=== PATIENT | female | born 1945 | race Caucasian/White ===

== ENCOUNTER 2024-11-19 19:33 | Inpatient (IN) | payer OTHER ==
[2024-11-19 22:08] LABS: ALT (SGPT) 10 U/L (Less than 34); AST (SGOT) 21 U/L (11-34); Albumin 3.5 g/dL (3.1-4.5); Alkaline Phosphatase 59 U/L (40-110); Anion Gap 11 mmol/L (10-20); BUN (Urea Nitrogen) 16 mg/dL (9.8-20.1); Bilirubin, Total 0.5 mg/dL (0.3-1.2); Calc. Creatinine Clearance 0 mL/min (70-130); Calcium 8.5 mg/dL (7.8-10.44); Carbon Dioxide 25 mmol/L (23-31); Chloride 98 mmol/L (98-107); Globulin 4.1 g/dL (2.4-3.5); Glucose 142 mg/dL (83-110); Potassium 3.3 mmol/L (3.5-5.1); Sodium 131 mmol/L (136-145)
[2024-11-19 22:40] LABS: Glucose, Urine (Dipstick) Normal (Negative); Leukocyte 500 (Negative); Protein, Urine (Dipstick) 15 mg/dl (Neg-Trace); Specific Gravity, Urine 1.005 (1.005-1.030)
[2024-11-19 22:44] LABS: #Basophils Less than 0.03 10x3/uL (0.0-0.2); #Eosinophils 0.04 10x3/uL (0.0-0.5); #Monocytes 0.95 10x3/uL (0.0-1.1); #Neutrophils 6.40 10x3/uL (1.5-8.4); %Basophils 0.2 % (0.0-2.0); %Eosinophils 0.4 % (0.0-6.0); %Lymphocytes 16.8 % (18.0-47.0); %Monocytes 10.6 % (0.0-10.0); %Neutrophils 71.8 % (40.0-75.0); Hematocrit 36.2 % (34.9-44.5); Hemoglobin 12.3 g/dL (12.0-15.5); Mean Corpuscular Hemoglobin 29.2 pg (27.0-33.0); Mean Corpuscular Volume 86.0 fL (81.6-98.3); Platelet Count 280 10x3/uL (150-450); Red Blood Cell (RBC) Count 4.21 10x6/uL (3.90-5.03); White Blood Cell (WBC) Count 8.93 10x3/uL (3.5-10.5)
[2024-11-19 22:52] LABS: Bacteria/HPF Rare-Few HPF (None Seen); CAUTI Indications for Culture Dysuria,urgency,freq; RBC/HPF 0-3 HPF (0-3); WBC/HPF 0-3 HPF (0-3)
[2024-11-19 22:53] LABS: Urine Culture Reflex No No
[2024-11-19] MEDS ORDERED: Ketorolac Tromethamine 30 MG (1 mL) VIAL ONE (23:21)
[2024-11-20 00:35] VITALS: BMI 27.9
[2024-11-20 12:22] VITALS: BMI 27.9
[2024-11-20] MEDS ORDERED: Bupivacaine HCl 0.5%/Epinephrine 1:200,000/PF 30 ml Vial ONE (12:39)
[2024-11-20] MEDS ORDERED: Ondansetron PF 4 MG/2 ML Vial ONE (12:40)
[2024-11-20] MEDS ORDERED: SUGAMMADEX SODIUM 200 MG/2 ML VIAL ONE (12:40)
[2024-11-20] MEDS ORDERED: Rocuronium Bromide 10 MG/ML (10ML VIAL) ONE (12:40)
[2024-11-20] MEDS ORDERED: PROPOFOL 40 ML ONE (12:40)
[2024-11-20] MEDS ORDERED: Lidocaine 1% PF 5 ML VIAL ONE (12:40)
[2024-11-20] MEDS ORDERED: Glycopyrrolate 0.2 MG/ML 5 ML SYRINGE ONE (13:12)
[2024-11-20] MEDS ORDERED: Calcium Carbonate 500 MG ChewTAB PO PRN (14:11)
[2024-11-20] MEDS ORDERED: hydrALAZINE 20 MG/ML VIAL SLOW IVP PRN (14:11)
[2024-11-20] MEDS ORDERED: Mag-Al 1200 mg/1200 mg/30 ML UDCUP PO PRN (14:11)
[2024-11-20] MEDS ORDERED: HYDROcodone/Acetaminophen 10/325 mg Tablet PO PRN ×2 (14:11)
[2024-11-20] MEDS ORDERED: Dextrose 50% Abboject 50 ML SYRINGE SLOW IVP PRN (14:11)
[2024-11-20] MEDS ORDERED: Glucagon 1 MG/ML KIT IM PRN (14:11)
[2024-11-20] MEDS ORDERED: Ondansetron PF 4 MG/2 ML Vial IVP PRN (14:11)
[2024-11-20] MEDS: Ketorolac Tromethamine 30 MG (1 mL) VIAL IVP SCH (17:13)
[2024-11-20] MEDS: Famotidine 20 MG TAB PO SCH (21:18)
[2024-11-20] MEDS: Famotidine/PF 20 mg/2ml Vial SLOW IVP SCH (21:30)
[2024-11-21 05:56] VITALS: TEMP 98.2
[2024-11-21 06:20] LABS: #Basophils Less than 0.03 10x3/uL (0.0-0.2); #Eosinophils Less than 0.03 10x3/uL (0.0-0.5); #Monocytes 0.32 10x3/uL (0.0-1.1); #Neutrophils 10.07 10x3/uL (1.5-8.4); %Basophils 0.1 % (0.0-2.0); %Eosinophils 0.0 % (0.0-6.0); %Lymphocytes 6.2 % (18.0-47.0); %Monocytes 2.9 % (0.0-10.0); %Neutrophils 90.5 % (40.0-75.0); Hematocrit 34.7 % (34.9-44.5); Hemoglobin 11.9 g/dL (12.0-15.5); Mean Corpuscular Hemoglobin 29.5 pg (27.0-33.0); Mean Corpuscular Volume 85.9 fL (81.6-98.3); Platelet Count 297 10x3/uL (150-450); Red Blood Cell (RBC) Count 4.04 10x6/uL (3.90-5.03); White Blood Cell (WBC) Count 11.12 10x3/uL (3.5-10.5)
[2024-11-21 06:21] LABS: Anion Gap 13 mmol/L (10-20); BUN (Urea Nitrogen) 12 mg/dL (9.8-20.1); Calc. Creatinine Clearance 61 mL/min (70-130); Carbon Dioxide 20 mmol/L (23-31); Chloride 108 mmol/L (98-107); Potassium 3.8 mmol/L (3.5-5.1); Sodium 137 mmol/L (136-145)
[2024-11-21 06:22] LABS: ALT (SGPT) 31 U/L (Less than 34); AST (SGOT) 43 U/L (11-34); Albumin 3.0 g/dL (3.1-4.5); Alkaline Phosphatase 61 U/L (40-110); Bilirubin, Total 0.4 mg/dL (0.3-1.2); Calcium 7.7 mg/dL (7.8-10.44); Globulin 3.9 g/dL (2.4-3.5); Glucose 155 mg/dL (83-110)
[2024-11-21 08:42] VITALS: BP 167/80
[2024-11-21] MEDS: Enoxaparin 40 MG (0.4 mL) SYRINGE SC SCH (08:42)
== END 2024-11-21 11:39 | disposition home or self-care (01) | DRG 419 ==
LOC: CSHERS 19:33 → CSHTELE 23:20
PROVIDERS: ADMIT Surgery; ATTEND Surgery
PROC: 0FT44ZZ Resection of Gallbladder, Percutaneous Endoscopic Approach (ICD-10-PCS; principal; 2024-11-20)
PROC: 8E0W4CZ Robotic Assisted Procedure of Trunk Region, Percutaneous Endoscopic Approach (ICD-10-PCS; 2024-11-20)
PROC: 3E03329 Introduction of Other Anti-infective into Peripheral Vein, Percutaneous Approach (ICD-10-PCS; 2024-11-20)
DX: K81.9 Cholecystitis, unspecified (principal); I10 Essential (primary) hypertension; E78.5 Hyperlipidemia, unspecified; Z98.890 Other specified postprocedural states; M81.0 Age-related osteoporosis without current pathological fracture; M19.90 Unspecified osteoarthritis, unspecified site; Z79.899 Other long term (current) drug therapy
CPT/HCPCS: 76705; 80053; 81001; 85025; 88304; 93005; 93010; 96365; 96375; C1889; J0694; J1100; J1885; J2543; J2704; J7030; J7120; S2900